=== PATIENT | female | born 1960 | race Caucasian/White ===

== ENCOUNTER 2018-09-21 11:39 | Emergency (ER) | payer MEDICARE, BC ==
--- NOTE | 2018-09-21 19:15 | ER ---
HISTORY OF PRESENT ILLNESS: The patient is a 58-year-old female comes in. She fell over backwards this morning and injured her right thumb. She has no other injuries. Her wrist does not hurt her other fingers and the rest of her hand does not hurt. She just has pain and swelling on the right thumb. ALLERGIES: NKDA. CURRENT MEDICATIONS: Sertraline 150 mg p.o. daily and Keppra 1000 mg p.o. t.i.d. PHYSICAL EXAMINATION: GENERAL: The patient is alert, oriented, no apparent distress. VITAL SIGNS: Blood pressure is 132/67, pulse is 54, temperature is 97, O2 saturation is 99% on room air. EXTREMITIES: The patient's right thumb is slightly swollen. It is a little bit ecchymotic. This is at the distal tip. She is able to move the distal interphalangeal joint, both flexion and extension. IMAGING: An x-ray was obtained which shows a nondisplaced fracture of the distal phalanx through the middle. ASSESSMENT: Distal phalanx fracture, nondisplaced, middle aspect on the right thumb. PLAN: The patient was placed in an aluminum thumb splint. She can take it off to shower, just basically put it on the rest of the time and if she would want to do dishes, but I would not recommend doing that right away. There is really no evidence of any injury to the joint, just the distal tuft fracture about midway through it. If she has any problems, would have her return to clinic. It is a closed fracture, and the finger splint should protect it just fine. SAUNDRA/CHASE /[id number]
--- NOTE | 2018-09-22 17:48 | CR ---
Date of Service: 09/21/18 Clinical Data: Fall RIGHT THUMB: No priors. There is a nondisplaced oblique fracture through the base of the distal phalanx. 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 No other acute abnormalities. [id number] [facility]
== END 2018-09-21 12:26 | disposition home or self-care (01) ==
LOC: LB.ED 11:39
DX: S62.521A Displaced fracture of distal phalanx of right thumb, initial encounter for closed fracture (principal); W19.XXXA Unspecified fall, initial encounter; Z79.899 Other long term (current) drug therapy
CPT/HCPCS: 73140-F5; 99282